=== PATIENT | female | born 1960 | race African-American/Black ===

== ENCOUNTER 2021-11-09 05:45 | Emergency (ER) | payer MEDICAID ==
[~2021-11-09] VITALS: Ht 162.6 cm; Wt 90.2 kg
[~2021-11-09 05:45] MED LIST: SEE MED SHEET
[2021-11-09] MEDS ORDERED: IBUP-2029 MT (08:37)
[2021-11-09 08:44] VITALS: BP 155/82
== END 2021-11-09 08:56 | disposition home or self-care (01) ==
LOC: ER 05:45
DX: M79.605 Pain in left leg (principal); I11.0 Hypertensive heart disease with heart failure; I50.9 Heart failure, unspecified
CPT/HCPCS: 93005; 93971; 99284

== ENCOUNTER 2022-05-24 05:15 | Emergency (ER) | payer MEDICAID ==
[~2022-05-24] VITALS: Ht 162.6 cm; Wt 54.8 kg
[~2022-05-24 05:15] MED LIST changes: +IBUP-2029 MT
[2022-05-24 06:35] VITALS: BP 158/84
[2022-05-24] MEDS ORDERED: IBUPROFEN 600MG TABLET PO STA (06:46)
[2022-05-24 08:35] LABS: BASOPHILS % 0.7 % (0.0-2.0); EOSINOPHILS % 2.9 % (0.0-5.0); LYMPHOCYTES % 9.1 % (20.0-50.0); MEAN CORPUSCULAR HEMOGLOBIN 29.4 pg (28.0-32.0); MEAN CORPUSCULAR VOLUME 87.5 fL (81.0-99.0); MEAN PLATELET VOLUME 8.3 fl (7.4-10.4); MONOCYTES % 6.4 % (2.0-8.0); NEUTROPHILS % 80.9 % (40.0-76.0); PLATELET 278 x1000/uL (130-400); RED BLOOD CELL COUNT 7.03 mill/uL (4.2-5.4); RED CELL DISTRIBUTION WIDTH 17.1 % (11.6-14.6)
[2022-05-24 08:50] LABS: CHLORIDE 100 mEq/L (98-107); HEMATOCRIT. 61.5 % (36.0-48.0); HEMOGLOBIN. 20.7 g/dL (12.0-16.0)
[2022-05-24] MEDS ORDERED: HYDR453.4 TP (10:02)
[2022-05-24] MEDS ORDERED: IBUP-2029 MT (10:02)
== END 2022-05-24 10:21 | disposition home or self-care (01) ==
LOC: ER 05:15
DX: I11.0 Hypertensive heart disease with heart failure (principal); I50.9 Heart failure, unspecified; R60.9 Edema, unspecified
CPT/HCPCS: 36415; 71045; 80053; 83880; 84484; 85025; 93005; 93971; 99285

== ENCOUNTER 2022-08-08 05:40 | Emergency (ER) | payer MEDICAID ==
[~2022-08-08 05:40] MED LIST changes: +HYDR453.4 TP
== END 2022-08-08 08:00 | disposition left against medical advice (07) ==
LOC: ER 05:40
DX: Z53.21 Procedure and treatment not carried out due to patient leaving prior to being seen by health care provider (principal)

== ENCOUNTER 2023-04-18 05:15 | Emergency (ER) | payer MEDICAID ==
[~2023-04-18] VITALS: Ht 162.6 cm; Wt 87.4 kg
[2023-04-18 05:26] VITALS: O2SAT 98
[2023-04-18] MEDS ORDERED: IBUP-2028 MT (08:58)
[2023-04-18 09:42] VITALS: BP 137/65; PULSE 72; RESP 16; TEMP 98.5
== END 2023-04-18 09:43 | disposition home or self-care (01) ==
LOC: ER 05:15
DX: S42.302A Unspecified fracture of shaft of humerus, left arm, initial encounter for closed fracture (principal); I10 Essential (primary) hypertension; W01.0XXA Fall on same level from slipping, tripping and stumbling without subsequent striking against object, initial encounter; Y93.89 Activity, other specified; Y92.89 Other specified places as the place of occurrence of the external cause; Y99.8 Other external cause status
CPT/HCPCS: 73030; 73562; 99284; L3670